=== PATIENT | female | born 1985 | race Caucasian/White ===

== ENCOUNTER 2017-03-12 18:42 | Emergency (ER) | payer BC ==
[2017-03-12 19:01] VITALS: BP 122/83
[2017-03-12] MEDS ORDERED: Lidocaine 1% 50 ML MDV INJECT ONE (19:30)
--- NOTE | 2017-03-12 19:54 | EDM.PDOC ---
ED HPI GENERAL MEDICAL PROBLEM - General Chief Complaint: Upper Extremity Injury/Pain Stated Complaint: SPLINTER IN RIGHT THUMB Time Seen by Provider: 03/12/17 19:06 Source of Information: Reports: Patient History Limitations: Reports: No Limitations - History of Present Illness INITIAL COMMENTS - FREE TEXT/NARRATIVE: The patient presents with a splinter under her right thumb. This happened just before arrival. She got it from a shelf at home. Her tetanus is up to date. 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: SVDx2 Psychiatric History: Reports: None Hematologic History: Reports: None Social & Family History - Family History Family Medical History: Noncontributory - Tobacco Use Smoking Status *Q: Never Smoker Second Hand Smoke Exposure: No - Caffeine Use Caffeine Use: Reports: None - Recreational Drug Use Recreational Drug Use: No Review of Systems - Review of Systems Review Of Systems: See Below Constitutional: Reports: No Symptoms Eyes: Reports: No Symptoms Ears: Reports: No Symptoms Nose: Reports: No Symptoms Mouth/Throat: Reports: No Symptoms Respiratory: Reports: No Symptoms Cardiovascular: Reports: No Symptoms GI/Abdominal: Reports: No Symptoms Genitourinary: Reports: No Symptoms Musculoskeletal: Reports: Other (Splinter under the right thumb nail) ED EXAM, GENERAL - Physical Exam Exam: See Below Exam Limited By: No Limitations General Appearance: Alert, WD/WN, No Apparent Distress Ears: Normal External Exam Nose: Normal Inspection Head: Atraumatic, Normocephalic Neck: Normal Inspection Respiratory/Chest: No Respiratory Distress Extremities: Other (Splinter under right thumb nail) ED TRAUMA EXTREMITY PROCEDURES - Foreign Body Removal Indication:: Splinter under right thumb nail Consent Obtained: Patient Performing Doctor:: Gregory Reyes A Foreign Body Other Location Comment:: Wood splinter under her right thumb nail Anesthesia Type: Regional (ring block) Complications:: No Course - Vital Signs Last Recorded V/S: Last Vital Signs Temp 97.4 F 03/12/17 19:01 Pulse 73 03/12/17 19:01 Resp 20 03/12/17 19:01 BP 122/83 03/12/17 19:01 Pulse Ox 96 03/12/17 19:01 - Orders/Labs/Meds Meds: Medications Discontinued Medications Generic Name Dose Route Start Last Admin Trade Name Freq PRN Reason Stop Dose Admin Lidocaine HCl 50 ml 03/12/17 19:30 Xylocaine 1% INJECT 03/12/17 19:31 ONETIME ONE - Re-Assessments/Exams Free Text/Narrative Re-Assessment/Exam: 03/12/17 19:53 I used 3ccs of 1% lidocaine to do a ring block on her right thumb. I then removed the splinter with some splinter forceps. Departure - Departure Time of Disposition: 21:30 Disposition: Home, Self-Care 01 Condition: Good Clinical Impression: Subungual foreign body of finger Qualifiers: Encounter type: initial encounter Qualified Code(s): S60.459A - Superficial foreign body of unspecified finger, initial encounter - Discharge Information Referrals: PCP,None [Primary Care Provider] - Forms: ED Department Discharge Additional Instructions: Soak your finger in warm soapy water 2 times per day and apply antibiotics after. Please return if you have more pain, redness, drainage or swelling.
== END 2017-03-12 21:40 | disposition home or self-care (01) ==
LOC: JD.ED 18:42
DX: S60.351A Superficial foreign body of right thumb, initial encounter (principal); Z87.440 Personal history of urinary (tract) infections; W45.8XXA Other foreign body or object entering through skin, initial encounter; Y92.009 Unspecified place in unspecified non-institutional (private) residence as the place of occurrence of the external cause
CPT/HCPCS: 20525; 99281; 99283-25

== ENCOUNTER 2018-12-14 12:37 | Inpatient (IN) | payer BC ==
[~2018-12-14 12:37] MED LIST: Bupivacaine 0.25% 10 ML SDV ONE
[2018-12-14] MEDS ORDERED: Nalbuphine 10 MG/1 ML Vial IVPUSH PRN (13:11)
[2018-12-14] MEDS ORDERED: fentaNYL 100 MCG/2 ML SDV EPIDUR PRN (13:11)
[2018-12-14] MEDS ORDERED: ePHEDrine 50 MG/ML SDV IVPUSH PRN (13:11)
[2018-12-14] MEDS ORDERED: Sodium Chloride 0.9% 10 ML Syringe FLUSH PRN (13:11)
[2018-12-14] MEDS ORDERED: diphenhydrAMINE 50 MG/ML SDV IVPUSH PRN (13:11)
[2018-12-14] MEDS ORDERED: Bupivacaine/fentaNYL/NS 100 ML Bag EPIDUR PRN (13:11)
[2018-12-14] MEDS ORDERED: Ondansetron 4 MG/2 ML SDV IVPUSH PRN (13:11)
[2018-12-14] MEDS ORDERED: Oxytocin/Lactated Ringers 10 UNIT/1,000 ML BAG IV SCH (13:15)
[2018-12-14] MEDS: Lactated Ringers 1,000 ML IV SCH ×2 (13:30→19:46)
--- NOTE | 2018-12-14 13:37 | PCM.PREANE ---
Preanesthetic Assessment - Procedure Proposed Procedure: dawson - Anesthesia/Transfusion/Family Hx Anesthesia History: Prior Anesthesia Without Reaction Type of Anesthesia Reaction: Other (see below) (epid difficulty) Family History of Anesthesia Reaction: No Transfusion History: No Prior Transfusion(s) - Review of Systems General: No Symptoms Pulmonary: No Symptoms Cardiovascular: No Symptoms Gastrointestinal: No Symptoms Neurological: No Symptoms Other: Reports: None - Physical Assessment Pulse: 92 O2 Sat by Pulse Oximetry: 100 Respiratory Rate: 20 Blood Pressure: 115/70 Height: 5 ft 10 in Weight: 81.647 kg ASA Class: 2 Mental Status: Alert & Oriented x3 Airway Class: Mallampati = 1 Dentition: Reports: Normal Dentition Thyro-Mental Finger Breadths: 3 Mouth Opening Finger Breadths: 3 ROM/Head Extension: Full Lungs: Clear to Auscultation, Normal Respiratory Effort Cardiovascular: Regular Rate, Regular Rhythm - Allergies Allergies/Adverse Reactions: Allergies Allergy/AdvReac Type Severity Reaction Status Date / Time No Known Allergies Allergy Verified 07/19/16 02:08 - Blood Blood Available: No - Acknowledgements Anesthesia Type Planned: Epidural PreAnesthesia Questionnaire - Past Health History Medical/Surgical History: Denies Medical/Surgical History Cardiovascular History: Reports: None Respiratory History: Reports: None Gastrointestinal History: Reports: None Genitourinary History: Reports: UTI, Recurrent 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 [Unable to Verify Home Med List] 03/12/17 [History] - CURRENT (IN HOUSE) MEDS Current Meds: Current Medications Diphenhydramine HCl (Benadryl) 25 mg IVPUSH Q6H PRN PRN Reason: pruritis Ephedrine Sulfate (Ephedrine Sulfate) 5 mg IVPUSH ASDIRECTED PRN PRN Reason: Hypotension Fentanyl (Sublimaze) 100 mcg EPIDUR Q3H PRN PRN Reason: Pain Fentanyl/Bupivacaine HCl (Fentanyl/Bupivacaine/Ns 2 Mcg-0.125% 100 Ml) 100 ml EPIDUR ASDIRECTED PRN PRN Reason: Pain Lactated Ringer's (Ringers, Lactated) 1,000 mls @ 100 mls/hr IV ASDIRECTED STEFFEN Oxytocin/Lactated Ringer's (Pitocin In Lr 10 Units/1,000 Ml) 10 unit in 1,000 mls @ 500 mls/hr IV .CONTINUOUS STEFFEN Nalbuphine HCl (Nubain) 10 mg IVPUSH Q2H PRN PRN Reason: Pain Ondansetron HCl (Zofran) 4 mg IVPUSH Q4H PRN PRN Reason: Nausea/Vomiting Sodium Chloride (Saline Flush) 10 ml FLUSH ASDIRECTED PRN PRN Reason: Keep Vein Open
[2018-12-14] MEDS ORDERED: fentaNYL 100 MCG/2 ML SDV ONE (13:42)
--- NOTE | 2018-12-14 15:55 | PCM.LDHP ---
L&D History of Present Illness - General Date of Service: 12/14/18 Admit Problem/Dx: Patient Status Order with Admit Dx/Problem 12/14/18 13:11 Patient Status [ADT] Routine Admission Diagnosis/Problem Admission Diagnosis/Problem Source of Information: Patient - History of Present Illness Introduction:: 33 year old presents in active labor after SROM of clear fluid. Pain Score: 10 - Related Data Allergies/Adverse Reactions: Allergies Allergy/AdvReac Type Severity Reaction Status Date / Time No Known Allergies Allergy Verified 07/19/16 02:08 Home Medications: Home Meds . 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: SVDx2 Psychiatric History: Reports: None Hematologic History: Reports: None - Past Surgical History HEENT Surgical History: Reports: Oral Surgery - History Comment History Comment: vits Social & Family History - Family History Family Medical History: Noncontributory - Tobacco Use Smoking Status *Q: Never Smoker Second Hand Smoke Exposure: No - Caffeine Use Caffeine Use: Reports: None - Alcohol Use Days Per Week of Alcohol Use: 0 - Recreational Drug Use Recreational Drug Use: No H&P Review of Systems - Review of Systems: Review Of Systems: See Below General: Reports: No Symptoms HEENT: Reports: No Symptoms Pulmonary: Reports: No Symptoms Cardiovascular: Reports: No Symptoms Gastrointestinal: Reports: No Symptoms Genitourinary: Reports: No Symptoms Musculoskeletal: Reports: No Symptoms Skin: Reports: No Symptoms Psychiatric: Reports: No Symptoms Neurological: Reports: No Symptoms Hematologic/Lymphatic: Reports: No Symptoms Immunologic: Reports: No Symptoms L&D Exam - Exam Exam: See Below - Vital Signs Vital Signs: Last Vital Signs Temp Pulse 92 12/14/18 13:55 Resp 20 12/14/18 13:55 BP 115/70 12/14/18 13:55 Pulse Ox 100 12/14/18 13:55 Weight: 81.647 kg - OB Specific Contraction Intensity: Moderate Movement: Active Heart Tones: Present Presentation: Vertex - Mason Score Mason Score Cervix Position: Midposition Mason Score Consistency: Soft Mason Score Effacement: >80% Mason Score Dilation: 3-4 cm Mason Score 's Station: -2 Mason Score Total: 9 - Exam General: Alert, Oriented HEENT: PERRLA, Conjunctiva Clear, EACs Clear, EOMI, Hearing Intact, Mucosa Moist & [place], Nares Patent, Normal Nasal Septum, Posterior Pharynx Clear, TMs Clear Neck: Supple, Trachea Midline Lungs: Clear to Auscultation, Normal Respiratory Effort Cardiovascular: Regular Rate, Regular Rhythm GI/Abdominal Exam: Normal Bowel Sounds, Soft, Non-Tender, No Organomegaly, No Distention, No Abnormal Bruit, No Mass, Pelvis Stable Rectal Exam: Normal Exam, Normal Rectal Tone Back Exam: Normal Inspection, Full Range of Motion Extremities: Normal Inspection, Normal Range of Motion, Non-Tender, No Pedal Edema, Normal Capillary Refill Skin: Warm, Dry, Intact Neurological: Cranial Nerves Intact, Reflexes Equal Bilateral Psychiatric: Alert, Normal Affect, Normal Mood - Patient Data Lab Results Last 24 hrs: Laboratory Results - last 24 hr 12/14/18 Range/Units 13:25 WBC 12.51 H (3.98-10.04) K/mm3 RBC 4.34 (3.98-5.22) M/mm3 Hgb 14.1 D (11.2-15.7) gm/L Hct 41.6 (34.1-44.9) % MCV 95.9 H D (79.4-94.8) fl MCH 32.5 H (25.6-32.2) pg MCHC 33.9 (32.2-35.5) g/dl RDW Std Deviation 44.0 (36.4-46.3) fL Plt Count 193 (182-369) K/mm3 MPV 10.4 (9.4-12.3) fl Neut % (Auto) 83.4 H (34.0-71.1) % Lymph % (Auto) 10.0 L (19.3-51.7) % [place] % (Auto) 5.9 (4.7-12.5) % Eos % (Auto) 0.3 L (0.7-5.8) Baso % (Auto) 0.2 (0.1-1.2) % Neut # (Auto) 10.43 H (1.56-6.13) K/mm3 Lymph # (Auto) 1.25 (1.18-3.74) K/mm3 [place] # (Auto) 0.74 H (0.24-0.36) K/mm3 Eos # (Auto) 0.04 (0.04-0.36) K/mm3 Baso # (Auto) 0.02 (0.01-0.08) K/mm3 Result Diagrams: 12/14/18 13:25 Problem List Initiated/Reviewed/Updated: Yes Orders Last 24hrs: Active Orders 24 hr Category Date Time Status Patient Status Manage Transfer [TRANSFER] Routine ADT 12/14/18 15:50 Ordered Patient Status [ADT] Routine ADT 12/14/18 13:11 Active Activity as Tolerated [RC] PFP Care 12/14/18 13:11 Active Communication Order [RC] ASDIRECTED Care 12/14/18 13:11 Active Heart Tones [RC] ASDIRECTED Care 12/14/18 13:11 Active Non Stress Test [RC] PER UNIT ROUTINE Care 12/14/18 13:11 Active Notify Provider [RC] ASDIRECTED Care 12/14/18 13:12 Active Notify Provider [RC] PFP Care 12/14/18 13:11 Active Notify Provider [RC] PRN Care 12/14/18 13:11 Active Peripheral IV Care [RC] . DIRECTED Care 12/14/18 13:11 Active Vital Signs [RC] PER UNIT ROUTINE Care 12/14/18 13:11 Active Regular Diet [DIET] Diet 12/14/18 Breakfast Active RAPID PLASMA REAGIN,RPR [CHEM] Routine Lab 12/14/18 13:25 Received Bupivacaine/fentaNYL/NS [fentaNYL/Bupivacaine/NS 2 MCG- Med 12/14/18 13:11 Active 0.125% 100 ML] 100 ml EPIDUR ASDIRECTED PRN Lactated Ringers [Ringers, Lactated] 1,000 ml Med 12/14/18 13:15 Active IV ASDIRECTED Nalbuphine [Nubain] Med 12/14/18 13:11 Active 10 mg IVPUSH Q2H PRN Ondansetron [Zofran] Med 12/14/18 13:11 Active 4 mg IVPUSH Q4H PRN Oxytocin/Lactated Ringers [Pitocin in LR 10 Units/1,000 Med 12/14/18 13:15 Active ML] 10 unit in 1,000 ml IV .CONTINUOUS Sodium Chloride 0.9% [Saline Flush] Med 12/14/18 13:11 Active 10 ml FLUSH ASDIRECTED PRN diphenhydrAMINE [Benadryl] Med 12/14/18 13:11 Active 25 mg IVPUSH Q6H PRN ePHEDrine [ePHEDrine sulfate] Med 12/14/18 13:11 Active 5 mg IVPUSH ASDIRECTED PRN fentaNYL [Sublimaze] Med 12/14/18 13:11 Active 100 mcg EPIDUR Q3H PRN Electronic Heart Tones Ext w TOCO [WOMSER] Oth 12/14/18 13:11 Ordered Routine Electronic Heart Tones Internal [WOMSER] Per Unit Oth 12/14/18 13:11 Ordered Routine Peripheral IV Insertion Adult [OM.PC] Routine Ot 12/14/18 13:11 Ordered Resuscitation Status Routine Resus Stat 12/14/18 13:11 Ordered Medication Orders Diphenhydramine HCl (Benadryl) 25 mg IVPUSH Q6H PRN PRN Reason: pruritis Ephedrine Sulfate (Ephedrine Sulfate) 5 mg IVPUSH ASDIRECTED PRN PRN Reason: Hypotension Fentanyl (Sublimaze) 100 mcg EPIDUR Q3H PRN PRN Reason: Pain Last Admin: 12/14/18 13:56 Dose: 100 mcg Fentanyl/Bupivacaine HCl (Fentanyl/Bupivacaine/Ns 2 Mcg-0.125% 100 Ml) 100 ml EPIDUR ASDIRECTED PRN PRN Reason: Pain Last Admin: 12/14/18 13:56 Dose: 100 ml Lactated Ringer's (Ringers, Lactated) 1,000 mls @ 100 mls/hr IV ASDIRECTED STEFFEN Oxytocin/Lactated Ringer's (Pitocin In Lr 10 Units/1,000 Ml) 10 unit in 1,000 mls @ 500 mls/hr IV .CONTINUOUS STEFFEN Nalbuphine HCl (Nubain) 10 mg IVPUSH Q2H PRN PRN Reason: Pain Ondansetron HCl (Zofran) 4 mg IVPUSH Q4H PRN PRN Reason: Nausea/Vomiting Sodium Chloride (Saline Flush) 10 ml FLUSH ASDIRECTED PRN PRN Reason: Keep Vein Open Assessment/Plan Comment:: Term labor. Anticipate .
--- NOTE | 2018-12-14 15:59 | PCM.SN ---
- Free Text/Narrative Note: Stage I - Patient presented in active labor with SROM. Epidural for anesthesia. Progressed to complete with overall reassuring FHT. Stage II - of viable female, weight pending. APGARS 9/9 at 1531. With father of baby allowed to assist head delivered in controlled manner over intact perineum. Body and shoulders followed without difficulty. Placed on maternal abdomen. Positive cry. Cord clamped and cut. Stage III - of intact placenta. 3vc. No lacerations. EBL 400.
[2018-12-14] MEDS ORDERED: Docusate Sodium 100 MG Cap PO PRN (18:31)
[2018-12-14] MEDS ORDERED: Lanolin 100% Cream 7 GM Tube TOP PRN (18:31)
[2018-12-14] MEDS ORDERED: Acetaminophen 325 MG Tab PO PRN (18:31)
[2018-12-14] MEDS ORDERED: Ibuprofen 600 MG Tab PO PRN (18:31)
[2018-12-14] MEDS ORDERED: Benzocaine/Menthol 20%-0.5% Spray 56 GM Canister TOP PRN (18:31)
[2018-12-14] MEDS ORDERED: Witch Hazel Medicated Pads 40/Jar TOP PRN (18:31)
--- NOTE | 2018-12-15 07:52 | PCM.PNPP ---
- General Info Date of Service: 12/15/18 Functional Status: Reports: Pain Controlled, Tolerating Diet, Ambulating, Urinating - Review of Systems General: Reports: No Symptoms Pulmonary: Reports: No Symptoms Cardiovascular: Reports: No Symptoms Gastrointestinal: Reports: No Symptoms Genitourinary: Reports: No Symptoms Musculoskeletal: Reports: No Symptoms Neurological: Reports: No Symptoms - Patient Data Vital Signs - Most Recent: Last Vital Signs Temp 37.0 C 12/15/18 02:32 Pulse 67 12/15/18 02:32 Resp 14 12/15/18 02:32 BP 99/64 12/15/18 02:32 Pulse Ox 96 12/15/18 02:32 Weight - Most Recent: 81.647 kg I&O - Last 24 Hours: Intake & Output 12/14/18 12/15/18 12/15/18 22:59 06:59 14:59 Intake Total 1560 Balance 1560 Lab Results - Last 24 Hours: Laboratory Results - last 24 hr 12/14/18 Range/Units 13:25 WBC 12.51 H (3.98-10.04) K/mm3 RBC 4.34 (3.98-5.22) M/mm3 Hgb 14.1 D (11.2-15.7) gm/L Hct 41.6 (34.1-44.9) % MCV 95.9 H D (79.4-94.8) fl MCH 32.5 H (25.6-32.2) pg MCHC 33.9 (32.2-35.5) g/dl RDW Std Deviation 44.0 (36.4-46.3) fL Plt Count 193 (182-369) K/mm3 MPV 10.4 (9.4-12.3) fl Neut % (Auto) 83.4 H (34.0-71.1) % Lymph % (Auto) 10.0 L (19.3-51.7) % [place] % (Auto) 5.9 (4.7-12.5) % Eos % (Auto) 0.3 L (0.7-5.8) Baso % (Auto) 0.2 (0.1-1.2) % Neut # (Auto) 10.43 H (1.56-6.13) K/mm3 Lymph # (Auto) 1.25 (1.18-3.74) K/mm3 [place] # (Auto) 0.74 H (0.24-0.36) K/mm3 Eos # (Auto) 0.04 (0.04-0.36) K/mm3 Baso # (Auto) 0.02 (0.01-0.08) K/mm3 Med Orders - Current: Current Medications Acetaminophen (Tylenol) 650 mg PO Q4H PRN PRN Reason: mild pain or fever Benzocaine/Menthol (Dermoplast Pain Relief [place]) 0 gm TOP ASDIRECTED PRN PRN Reason: Perineal Comfort Measure Docusate Sodium (Colace) 100 mg PO BID PRN PRN Reason: Constipation Emollient Ointment (Lansinoh Hpa) 0 gm TOP ASDIRECTED PRN PRN Reason: Sore Nipples Ibuprofen (Motrin) 600 mg PO Q6H PRN PRN Reason: Mild pain or fever Witch Melita (Tucks) 1 pad TOP ASDIRECTED PRN PRN Reason: Pain Last Admin: 12/14/18 19:43 Dose: 1 tub Discontinued Medications Diphenhydramine HCl (Benadryl) 25 mg IVPUSH Q6H PRN PRN Reason: pruritis Ephedrine Sulfate (Ephedrine Sulfate) 5 mg IVPUSH ASDIRECTED PRN PRN Reason: Hypotension Fentanyl (Sublimaze) 100 mcg EPIDUR Q3H PRN PRN Reason: Pain Last Admin: 12/14/18 13:56 Dose: 100 mcg Fentanyl (Sublimaze) Confirm Administered Dose 100 mcg .ROUTE .STK-MED ONE Stop: 12/14/18 13:43 Last Admin: 12/14/18 16:34 Dose: Not Given Fentanyl/Bupivacaine HCl (Fentanyl/Bupivacaine/Ns 2 Mcg-0.125% 100 Ml) 100 ml EPIDUR ASDIRECTED PRN PRN Reason: Pain Last Admin: 12/14/18 13:56 Dose: 100 ml Lactated Ringer's (Ringers, Lactated) 1,000 mls @ 100 mls/hr IV ASDIRECTED STEFFEN Last Admin: 12/14/18 19:46 Dose: 100 mls/hr Oxytocin/Lactated Ringer's (Pitocin In Lr 10 Units/1,000 Ml) 10 unit in 1,000 mls @ 500 mls/hr IV .CONTINUOUS STEFFEN Last Admin: 12/14/18 15:32 Dose: 500 mls/hr Nalbuphine HCl (Nubain) 10 mg IVPUSH Q2H PRN PRN Reason: Pain Ondansetron HCl (Zofran) 4 mg IVPUSH Q4H PRN PRN Reason: Nausea/Vomiting Sodium Chloride (Saline Flush) 10 ml FLUSH ASDIRECTED PRN PRN Reason: Keep Vein Open - Interaction Disposition, : [place] in Room with Family Interaction: Holding Infant Infant Feeding: Breastfed Infant; Nursed Well Support Person: - Recovery Exam Fundal Tone: Firm Fundal Level: At Umbilicus Fundal Placement: Midline Lochia Amount: Small Lochia Color: Rubra/Red Perineum Description: Intact, Minimal Bruising/Swelling Episiotomy/Laceration: None Bladder Status: Voiding - Exam General: Alert, Oriented, Cooperative GI/Abdominal Exam: Soft, Non-Tender Extremities: Normal Inspection Skin: Warm, Dry, Intact - Problem List Review Problem List Initiated/Reviewed/Updated: Yes - My Orders Last 24 Hours: My Active Orders 12/15/18 Breakfast Regular Diet [DIET] - Assessment Assessment:: 33 y/o G5 now P4014 PPD#1 from at 38 6/7 wks - Plan Plan:: * Routine cares * Encourage breast feeding * Discharge home today
--- NOTE | 2018-12-15 07:55 | PCM.DCSUM1 ---
Discharge Summary - Discharge Data Discharge Date: 12/15/18 Discharge Disposition: Home, Self-Care 01 Condition: Good - Patient Summary/Data Complications: None Consults: None Recommended Follow-up Testing/Procedures: Follow up in 3 weeks for check Hospital Course: Patient is a 33 y/o presented at 38 6/7 wks who presented in labor. Progressed well and underwent uncomplicated . See delivery note. she did well and was discharged home on PPD#1 - Patient Instructions Diet: Regular Diet as Tolerated Activity: As Tolerated Activity, Other: Pelvic Rest for 6 weeks Driving: May Drive Today Showering/Bathing: May Shower Showering/Bathing, Other: May Bathe Notify Provider of: Fever, Increased Pain, Swelling and Redness, Drainage, Nausea and/or Vomiting - Discharge Plan *PRESCRIPTION DRUG MONITORING PROGRAM REVIEWED*: Not Applicable *COPY OF PRESCRIPTION DRUG MONITORING REPORT IN PATIENT [place]: Not Applicable Home Medications: Home Meds Docusate Sodium [Colace] 100 mg PO BID PRN cap 12/14/18 [Rx] Ibuprofen [Motrin] 600 mg PO Q6H PRN tablet 12/14/18 [Rx] PNV95/Ferrous Fumarate/FA [ Tablet] 1 tab PO DAILY 12/14/18 [History] Referrals: Rosa Chambers MD [Primary Care Provider] - (3 weeks for check) - Discharge Summary/Plan Comment DC Time >30 min.: No - Patient Data Vitals - Most Recent: Last Vital Signs Temp 37.0 C 12/15/18 02:32 Pulse 67 12/15/18 02:32 Resp 14 12/15/18 02:32 BP 99/64 12/15/18 02:32 Pulse Ox 96 12/15/18 02:32 Weight - Most Recent: 81.647 kg I&O - Last 24 hours: Intake & Output 12/14/18 12/15/18 12/15/18 22:59 06:59 14:59 Intake Total 1560 Balance 1560 Lab Results - Last 24 hrs: Laboratory Results - last 24 hr 12/14/18 Range/Units 13:25 WBC 12.51 H (3.98-10.04) K/mm3 RBC 4.34 (3.98-5.22) M/mm3 Hgb 14.1 D (11.2-15.7) gm/L Hct 41.6 (34.1-44.9) % MCV 95.9 H D (79.4-94.8) fl MCH 32.5 H (25.6-32.2) pg MCHC 33.9 (32.2-35.5) g/dl RDW Std Deviation 44.0 (36.4-46.3) fL Plt Count 193 (182-369) K/mm3 MPV 10.4 (9.4-12.3) fl Neut % (Auto) 83.4 H (34.0-71.1) % Lymph % (Auto) 10.0 L (19.3-51.7) % [place] % (Auto) 5.9 (4.7-12.5) % Eos % (Auto) 0.3 L (0.7-5.8) Baso % (Auto) 0.2 (0.1-1.2) % Neut # (Auto) 10.43 H (1.56-6.13) K/mm3 Lymph # (Auto) 1.25 (1.18-3.74) K/mm3 [place] # (Auto) 0.74 H (0.24-0.36) K/mm3 Eos # (Auto) 0.04 (0.04-0.36) K/mm3 Baso # (Auto) 0.02 (0.01-0.08) K/mm3 Med Orders - Current: Current Medications Acetaminophen (Tylenol) 650 mg PO Q4H PRN PRN Reason: mild pain or fever Benzocaine/Menthol (Dermoplast Pain Relief [place]) 0 gm TOP ASDIRECTED PRN PRN Reason: Perineal Comfort Measure Docusate Sodium (Colace) 100 mg PO BID PRN PRN Reason: Constipation Emollient Ointment (Lansinoh Hpa) 0 gm TOP ASDIRECTED PRN PRN Reason: Sore Nipples Ibuprofen (Motrin) 600 mg PO Q6H PRN PRN Reason: Mild pain or fever Witch Melita (Tucks) 1 pad TOP ASDIRECTED PRN PRN Reason: Pain Last Admin: 12/14/18 19:43 Dose: 1 tub Discontinued Medications Diphenhydramine HCl (Benadryl) 25 mg IVPUSH Q6H PRN PRN Reason: pruritis Ephedrine Sulfate (Ephedrine Sulfate) 5 mg IVPUSH ASDIRECTED PRN PRN Reason: Hypotension Fentanyl (Sublimaze) 100 mcg EPIDUR Q3H PRN PRN Reason: Pain Last Admin: 12/14/18 13:56 Dose: 100 mcg Fentanyl (Sublimaze) Confirm Administered Dose 100 mcg .ROUTE .K-MED ONE Stop: 12/14/18 13:43 Last Admin: 12/14/18 16:34 Dose: Not Given Fentanyl/Bupivacaine HCl (Fentanyl/Bupivacaine/Ns 2 Mcg-0.125% 100 Ml) 100 ml EPIDUR ASDIRECTED PRN PRN Reason: Pain Last Admin: 12/14/18 13:56 Dose: 100 ml Lactated Ringer's (Ringers, Lactated) 1,000 mls @ 100 mls/hr IV ASDIRECTED STEFFEN Last Admin: 12/14/18 19:46 Dose: 100 mls/hr Oxytocin/Lactated Ringer's (Pitocin In Lr 10 Units/1,000 Ml) 10 unit in 1,000 mls @ 500 mls/hr IV .CONTINUOUS STEFFEN Last Admin: 12/14/18 15:32 Dose: 500 mls/hr Nalbuphine HCl (Nubain) 10 mg IVPUSH Q2H PRN PRN Reason: Pain Ondansetron HCl (Zofran) 4 mg IVPUSH Q4H PRN PRN Reason: Nausea/Vomiting Sodium Chloride (Saline Flush) 10 ml FLUSH ASDIRECTED PRN PRN Reason: Keep Vein Open
--- NOTE | 2018-12-15 12:28 | PCM.POSTAN ---
POST ANESTHESIA ASSESSMENT - MENTAL STATUS Mental Status: Alert - RESPIRATORY Respiratory Status: Respiratory Rate WNL, Airway Patent, O2 Saturation Stable - CARDIOVASCULAR CV Status: Pulse Rate WNL, Blood Pressure Stable - GASTROINTESTINAL GI Status: No Symptoms - POST OP HYDRATION Hydration Status: Adequate & Stable
[2018-12-15 15:01] VITALS: BP 104/88
== END 2018-12-15 16:25 | disposition home or self-care (01) | DRG 560 ==
LOC: JD.OB 12:37 → JD.OBCHECK 12:37 → JD.OB 13:11 → OBSVTOIN 15:31 → JD.OB 15:32
PROVIDERS: ADMIT Obstetrics & Gynecology; ATTEND Obstetrics & Gynecology
PROC: 10E0XZZ Delivery of Products of Conception, External Approach (ICD-10-PCS; principal; 2018-12-14)
DX: O80 Encounter for full-term uncomplicated delivery (principal); Z3A.38 38 weeks gestation of pregnancy; Z37.0 Single live birth
CPT/HCPCS: 01967; 36415; 51701; 59025; 59409; 85025; 86592; J2590; J3010; J3490; J7120